=== PATIENT | male | born 1945 | race Caucasian/White ===

== ENCOUNTER 2020-12-01 09:29 | Emergency (ER) | payer MEDICARE ==
[2020-12-01 10:23] LABS: BASOPHIL 0.9 % (0-2); EOSINOPHIL 3.5 % (0-7); HCT 44.6 % (42.0-52.0); HGB 14.8 g/dl (13.2-18.0); LYMPHOCYTE 28.2 % (15-48); MCH 29.7 pg (25.0-31.0); MCHC 33.2 g/dL (32.0-36.0); MCV 89.6 fL (78.0-100.0); MONOCYTE 8.1 % (0-12); NEUTROPHIL 58.6 % (41-80); NRBC 0; PLT 197 K/uL (150-400); RBC 4.98 M/uL (4.70-6.00); RDW 13.2 % (11.5-14.0); WBC 11.4 K/uL (4.0-10.5)
[2020-12-01 10:45] LABS: ALBUMIN 3.3 g/dL (3.4-5.0); BILIRUBIN - TOTAL 0.4 mg/dL (0.2-1.0); BUN/CREAT RATIO (CALC) 18.5 RATIO; CREATININE 1.3 mg/dL (0.67-1.17); GLOBULIN (CALCULATION) 3.9 g/dL; POTASSIUM 4.6 mmol/L (3.5-5.1); TOTAL PROTEIN 7.2 g/dL (6.4-8.2)
[2020-12-01] MEDS ORDERED: LEVAQUIN500 MG PO (12:06)
== END 2020-12-01 12:48 | disposition home or self-care (01) ==
LOC: FER 09:29
PROVIDERS: Emergency Medicine
DX: T17.928A Food in respiratory tract, part unspecified causing other injury, initial encounter (principal); I10 Essential (primary) hypertension; E11.9 Type 2 diabetes mellitus without complications; Z86.73 Personal history of transient ischemic attack (TIA), and cerebral infarction without residual deficits
CPT/HCPCS: 36415; 71046; 80053; 85025; 94010